=== PATIENT | female | born 1995 | race Two or more races ===

== ENCOUNTER 2022-03-02 01:04 | Emergency (ER) | payer OTHER ==
[~2022-03-02] VITALS: Ht 160 cm; Wt 65.8 kg
== END 2022-03-02 11:30 | disposition home or self-care (01) ==
LOC: ER 01:04
DX: R10.2 Pelvic and perineal pain (principal); N83.201 Unspecified ovarian cyst, right side

== ENCOUNTER 2022-10-05 08:19 | Outpatient (CLI) | payer OTHER ==
[~2022-10-05 08:19] MED LIST: AMPICILLIN TRI500 MG; NAPR500T14 PO; Tylenol #3 PO
== END 2022-10-05 08:29 | disposition home or self-care (01) ==
LOC: RAD 08:19
PROVIDERS: ATTEND Urology
DX: N20.0 Calculus of kidney (principal)

== ENCOUNTER 2022-10-12 06:56 | Outpatient (CLI) | payer OTHER | END 2022-10-12 06:57 | disposition home or self-care (01) | LOC: LAB 06:56 | PROVIDERS: ATTEND Urology | DX: N20.0 Calculus of kidney (principal) ==

== ENCOUNTER 2022-10-18 11:00 | Day surgery (SDC) | payer OTHER ==
[~2022-10-18 11:00] MED LIST changes: +CIPRO500 MG/5 M PO
== END 2022-10-18 16:00 | disposition home or self-care (01) ==
LOC: CIR.AMB 11:00
PROVIDERS: ATTEND Urology
DX: N20.0 Calculus of kidney (principal); Z20.822 Contact with and (suspected) exposure to COVID-19

== ENCOUNTER 2022-10-19 21:33 | Emergency (ER) | payer OTHER ==
[~2022-10-19] VITALS: Ht 160 cm; Wt 70.8 kg
[2022-10-20] MEDS ORDERED: ONDANSETRON ODT4 MG PO (02:38)
[2022-10-20] MEDS ORDERED: PEPCID40 MG PO (02:38)
== END 2022-10-20 02:45 ==
LOC: ER 21:33
DX: T88.7XXA Unspecified adverse effect of drug or medicament, initial encounter (principal); T50.995A Adverse effect of other drugs, medicaments and biological substances, initial encounter; Y92.89 Other specified places as the place of occurrence of the external cause

== ENCOUNTER 2022-10-26 12:56 | Outpatient (CLI) | payer OTHER ==
[~2022-10-26 12:56] MED LIST changes: +ONDANSETRON ODT4 MG PO; +PEPCID40 MG PO
== END 2022-10-26 13:02 | disposition home or self-care (01) ==
LOC: RAD 12:56
PROVIDERS: ATTEND Urology
DX: N20.0 Calculus of kidney (principal)

== ENCOUNTER 2022-10-26 13:39 | Outpatient (CLI) | payer OTHER | END 2022-10-26 13:40 | disposition home or self-care (01) | LOC: LAB 13:39 | PROVIDERS: ATTEND Urology | DX: N20.0 Calculus of kidney (principal) ==

== ENCOUNTER 2022-11-16 06:40 | Outpatient (CLI) | payer OTHER | END 2022-11-16 06:41 | disposition home or self-care (01) | LOC: LAB 06:40 | PROVIDERS: ATTEND Urology | DX: N20.1 Calculus of ureter (principal) ==

== ENCOUNTER 2022-12-26 15:23 | Outpatient (CLI) | payer OTHER | END 2022-12-26 23:00 | disposition home or self-care (01) | LOC: LAB 15:23 | PROVIDERS: ATTEND Urology | DX: N20.0 Calculus of kidney (principal); N20.1 Calculus of ureter ==